=== PATIENT | male | born 1995 | race Asian ===

== ENCOUNTER 2017-02-23 08:57 | Inpatient (IN) | payer SELFPAY ==
--- NOTE | ~2017-02-23 | PN ---
Unit #: [id number] #: [id number] Patient: MIRANDACARLOS [id number] [facility] [address] [place] [address] [id number] I MR#: [id number] NAME: PERLITA MATOS ROOM: [facility]6 Age: 22 Sex: M Admission Date: 02/23/2017 : 1995 Attending Physician: Selena Heath M.D. Admitting Physician: Gerald Betancur PROGRESS NOTES DATE 02/25/2017 DISCUSSION Mr. Matos is a 22-year-old Uruguayan male who was seen today and chart was reviewed and case was discussed with the staff. He has been anxious, withdrawn, disorganized and rather seclusive to himself. Meanwhile, he has been showing some improvement in his mood as of yesterday and has not shown any agitation or violent outburst. Staff report that he did take his medications and so far no tolerability issues are noted. His family was also able to have irregular visitation. MENTAL STATUS EXAMINATION Young [place]ruguayan male who was casually dressed with fair personal hygiene and appears to be in no acute distress or discomfort. He was awake and alert on interaction with intact orientation. His mood was anxious with congruent affect. His speech is slow and restricted in content. He denies any suicidal or homicidal ideations and also denies any auditory or visual hallucinations. His insight and judgement remains significantly impaired. TREATMENT PLAN 1. Will continue on his current medications and treatment protocol. Will monitor his response to the medications and make further adjustments as needed. 2. Will continue to follow up. Dictated by... Gerald Betancur/britney TD: 02/25/2017 21:07 JOB #: [id number] Unit #: [id number] #: [id number] Patient: PERLITA MATOS PROGRESS NOTES Page 1 of 1 X Selena Heath MD PROGRESS NOTE
--- NOTE | ~2017-02-23 | PN ---
Unit #: [id number] #: [id number] Patient: PERLITA MATOS [id number] [facility] [address] [place] [address] [id number] MR#: [id number] NAME: PERLITA MATOS ROOM: [facility] Age: 22 Sex: M Admission Date: 02/23/2017 : 1995 Attending Physician: Selena Heath M.D. Admitting Physician: Gerald Betancur PROGRESS NOTES DATE 02/27/2017 DISCUSSION Mr. Matos is a 22-year-old Turkmen male who was seen today and chart was reviewed and case was discussed with the staff. He has been anxious, withdrawn though has not shown any agitation, irritability and appears to be doing better and has been calmer and cooperative with treatment recommendations and has been taking medications and tolerating them fairly well with no reported side effects. MENTAL STATUS EXAMINATION Young Turkmen male who was casually dressed with fair personal hygiene and appears to be in no acute distress or discomfort. He was awake and alert on interaction with intact orientation. His mood was anxious with congruent affect. His speech is slow and goal-directed. He denies any suicidal or homicidal ideations. His insight and judgement remains slightly impaired. TREATMENT PLAN 1. Will continue his current treatment protocol. Will monitor his response and make further adjustments as needed. 2. Will continue to follow up. Dictated by... Selena Heath M.D. IAA/britney TD: 02/27/2017 19:47 JOB #: [id number] Unit #: [id number] #: [id number] Patient: PERLITA MATOS PROGRESS NOTES Page 1 of 1 X Selena Heath MD PROGRESS NOTE
--- NOTE | ~2017-02-23 | DS ---
Unit #: [id number] #: [id number] Patient: MIRANDA [id number] [facility] [address] [place] [address] [id number] I MR#: [id number] NAME: MIRANDA ROOM: [facility]6 Age: 22 Sex: M Admission Date: 02/23/2017 : 1995 Discharge Date: 03/01/2017 Attending Physician: Selena Heath M.D. DISCHARGE SUMMARY IDENTIFYING DATA Mr. Matos is a 22-year-old Zimbabwean male who is a resident of [place], [place] and was transferred to us from [facility] at [facility]. DISCHARGE DIAGNOSES Psychiatric: Chronic paranoid schizophrenia. Medical: None. Stressors: Moderate psychosocial stressors. HISTORY OF PRESENT ILLNESS Please see initial psychiatric evaluation for details. PAST PSYCHIATRIC HISTORY Please see initial psychiatric evaluation for details. PAST MEDICAL HISTORY Please see initial psychiatric evaluation for details. HOSPITAL COURSE The [facility] and was oriented to the hospital environment and routine p.r.n. medications were initiated, and he was started on Haldol and Cogentin for psychosis and was closely monitored. He was initially seen to be very withdrawn, seclusive, and agitated and aggressive and hostile, and heading and attacking staff members, out of his paranoia and delusional behavior, requiring p.r.n. medications; however, he was compliant with the Haldol and Cogentin, and was able to show a fairly decent therapeutic response and was then seen to be calm and seclusive to himself and cooperative with treatment and no agitation, aggression, or psychosis was noticed and he was not seen to be danger to self or anyone else and as such, it was decided that he will be discharged home and will continue treatment on an outpatient basis. DISCHARGE MEDICATIONS Haldol 5 mg b.i.d. for psychosis and Cogentin 1 mg b.i.d. for EPS. DISCHARGE CONDITION Stable. PROGNOSIS Fair. Unit #: [id number] #: [id number] Patient: MIRANDA Dictated by... Gerald Betancur/soren TD: 03/01/2017 10:50 JOB #: [id number] DISCHARGE SUMMARY Page 1 of 1 X Selena Heath MD DISCHARGE SUMMARY
--- NOTE | ~2017-02-23 | PA ---
Unit #: [id number] #: [id number] Patient: MIRANDA [id number] [facility] [address] [place] [address] [id number] MR#: [id number] NAME: PERLITA JEAN ROOM: [facility] Age: 22 Sex: M Admission Date: 02/23/2017 : 1995 Date of Assessment: Attending Physician: Selena Heath M.D. Admitting Physician: Selena Heath M.D. PSYCHIATRIC ASSESSMENT IDENTIFYING DATA Mr. Esquivel is a 22-year-old Frisian Macedonian male, who is a resident of [place], [place] and was transferred to us from Emergency Psychiatric Services at [facility]. CHIEF COMPLAINT "I don't know." HISTORY OF PRESENT ILLNESS Mr. Esquivel is a 22-year-old Macedonian male, who was brought to the hospital emergency room by family due to the patient's bizarre behavior and according to the reports, family brought him in due to increasing auditory hallucinations, paranoia, and increasing being withdrawn for the last 2 years and family reports the patient has been sleeping approximately 2 hours at night and has poor appetite and reports being paranoid about food appearance make as he believes that food is poisoned. While in the ER, the patient was observed to be very paranoid and attempted to leave the interview room and once the patient outside the interview room, he would run and jump over nursing station in the waiting area and reported and reviewed that he is afraid of male, who follows him and watches him and told the interviewer that this person stares at him and his eye are "like snakes," and the patient also told the interviewer in the interview that The patient had a knife while at home and before being brought to the emergency room by family. He was also noticed to have knives on him outside of the house and approaching neighbors with it and has been extremely paranoid and delusion, believing that others are after him, watching and trying to hurt him and as such, he has been carrying knife in mean to self defend. He was seen to be a significant danger to self and as such, recommendation for inpatient level of care for safety and stabilization was made and the patient was transferred to us. SUBSTANCE ABUSE HISTORY The patient denies any history of alcohol or drug abuse. PAST PSYCHIATRIC HISTORY The patient has not had any prior inpatient or outpatient psychiatric treatment. Review of the medical records indicated currently is not active in treatment program, is not seeing a psychiatrist, not taking any psychotropic medications. PAST MEDICAL HISTORY No acute or chronic medical illnesses. Unit #: [id number] #: [id number] Patient: MIRANDA, ALLERGIES No known medication allergies. CURRENT MEDICATIONS None. PERSONAL AND SOCIAL HISTORY A 22-year-old Macedonian male, who reports that he lives at home with his family and has fairly decent social support system. MENTAL STATUS EXAMINATION Young Macedonian male, who was casually dressed with fair personal hygiene, appears to be in no acute distress or discomfort. He was awake and alert on interaction with intact orientation to time, place, and person. His mood was anxious with a congruent affect. His speech was slow and restricted in content. His thought processes were disorganized with some looseness of associations and paranoid ideations and delusional behavior. His insight and judgment remain significantly impaired. DIAGNOSTIC IMPRESSION Psychiatric: Chronic paranoid schizophrenia. Medical: None. Stressors: Moderate psychosocial stressors. TREATMENT PLAN 1. The patient has presented with symptoms suggestive of chronic paranoid schizophrenia with significant paranoia and delusional behavior, anhedonia, amotivation, alogia and at the same time does not appear to have received any ongoing treatment, though symptoms has been present according to family for the last couple of years and has been decompensating and has been becoming a danger to self and others and will recommend inpatient hospitalization for safety and stabilization. We will start him back on his home medications. We will adjust the medications and monitor response. 2. Supportive therapy was provided to the patient. ESTIMATED LENGTH OF STAY 5 to 7 days. ABILITY TO HELP SELF Limited. WILLINGNESS TO HELP SELF The patient appears to be willing to help self. STRENGTHS 1. Communicative. 2. Cooperative. PROBLEMS 1. Chronic dysphoric symptoms. 2. Poor social support system. DISCHARGE CRITERIA This will be contingent upon the patient's ability to show resolution of his depression and psychosis and his ability to stay safe to himself, particularly after discharge from the hospital. Unit #: [id number] #: [id number] Patient: MIRANDA, Dictated by... Selena Heath M.D. MARIE/soren E[place]OR[place]: 02/24/2017 06:21 TD: 02/24/2017 06:58 JOB #: [id number] PSYCHIATRIC ASSESSMENT Page 1 of 1 X Selena Heath MD PSYCHIATRIC ASSESSMENT
--- NOTE | ~2017-02-23 | PN ---
Unit #: [id number] #: [id number] Patient: PERLITA MATOS [id number] [facility] [address] [place] [address] [id number] MR#: [id number] NAME: PERLITA MATOS ROOM: [facility] Age: 22 Sex: M Admission Date: 02/23/2017 : 1995 Attending Physician: Selena Heath M.D. Admitting Physician: Gerald Betancur PROGRESS NOTES DATE 02/26/2017 DISCUSSION Mr. Matos is a 22-year-old Bhutanese male who was seen today and chart was reviewed and case was discussed with the staff. He has been anxious, withdrawn and has not shown any agitation, irritability and has been cooperative with treatment recommendations as he has been taking medications and tolerating them fairly well with no reported side effects. MENTAL STATUS EXAMINATION Young Bhutanese male who was casually dressed with fair personal hygiene and appears to be in no acute distress or discomfort. He was awake and alert on interaction with intact orientation. His mood was anxious with congruent affect. He denies any suicidal or homicidal ideations. His insight and judgement remain slightly impaired. TREATMENT PLAN 1. Will continue his current medications and treatment protocol. Will monitor his response to the medications and make further adjustments as needed. 2. Will continue to follow up. Dictated by... Gerald Betancur/britney TD: 02/26/2017 16:29 JOB #: [id number] Unit #: [id number] #: [id number] Patient: PERLITA MATOS PROGRESS NOTES Page 1 of 1 X Selena Heath MD X PROGRESS NOTE
--- NOTE | ~2017-02-23 | HP ---
Unit #: [id number] #: [id number] Patient: PERLITA JEAN [id number] [place] [address] [id number] I MR#: [id number] NAME: PERLITA JEAN ROOM: [facility]6 Age: 22 Sex: M Admission Date: 02/23/2017 : 1995 Attending Physician: Selena Heath M.D. Admitting Physician: Selena Heath M.D. HISTORY AND PHYSICAL HISTORY OF PRESENT ILLNESS Perlita is a 22 year old male immigrant from [facility] admitted to [address] [place] [address] after reporting auditory hallucinations and paranoia. Family says he has been acting bizarre. PAST MEDICAL HISTORY Nothing significant. PAST SURGICAL HISTORY Nothing reported. ALLERGIES No known drug allergies. SOCIAL HISTORY He denies cigarettes, alcohol and admits to marijuana on occasion. FAMILY HISTORY Medically noncontributory. REVIEW OF SYSTEMS He does not answer all questions appropriately. There are no reports of nausea, vomiting or diarrhea. He has had no cough or increased temperature. CURRENT MEDICATIONS 1. Thorazine 50 mg q 6 hours p.r.n. 2. Milk of Magnesia p.r.n. 3. Maalox p.r.n. 4. Tylenol p.r.n. PHYSICAL EXAMINATION GENERAL: Alert, well-nourished, in no apparent distress. VITAL SIGNS: Blood pressure 122/76, heart rate 100, respirations 16, temperature 98.6. WEIGHT: 130 pounds. HEIGHT: 5'0". SKIN: Warm and dry without rash or lesion. HEENT: Normocephalic. TMs not viewed. Oral and nasal passages clear. Conjunctivae clear. Pupils equal, round and reactive to light and accommodation. Extraocular movements intact. NECK: Supple without lymphadenopathy or thyromegaly. Unit #: [id number] #: [id number] Patient: PERLITA JEAN HEART: Regular rate and rhythm without murmur. LUNGS: Clear. ABDOMEN: Soft, nontender. : Not done. EXTREMITIES: No evidence of cyanosis, clubbing or edema. Moves all extremities without focal deficit. NEUROLOGICAL: Grossly within normal limits. Cranial Nerves: II: Visual haney are intact. III, IV AND : Extraocular movements are intact. Pupils are equal, round and reactive to light. V: Facial sensation is grossly normal. VII: Facial movements and expression are normal. VIII: Auditory acuity grossly intact. IX, X: Uvula is midline. Phonation is normal. XI: Patient shrugs shoulders and turns head normally. XII: Tongue protrudes in the midline. Sensory and Motor Function: Sensory and motor sensation is grossly normal. Motor: moves all extremities well. Coordination: Gait is normal. Deep Tendon Reflexes: Intact. IMPRESSION Psychiatric admission RECOMMENDATIONS PSYCHIATRIC: Per psychiatrist. MEDICAL: I see no contraindications to participating in facility's activities. MEDICAL PROGNOSIS Good. MEDICAL CONDITION Stable. Dictated by... Ramonita Pratt P.A.-C. for Gerald Urias/primitivo TD: 02/24/2017 00:15 JOB #: [id number] HISTORY AND PHYSICAL Page 1 of 1 X Ramonita Pratt X HISTORY AND PHYSICAL
--- NOTE | ~2017-02-23 | PN ---
Unit #: [id number] #: [id number] Patient: MIRANDA [id number] [facility] [address] [place] [address] [id number] MR#: [id number] NAME: PERLITA MATOS ROOM: [facility]6 Age: 22 Sex: M Admission Date: 02/23/2017 : 1995 Attending Physician: Selena Heath M.D. Admitting Physician: Gerald Betancur PROGRESS NOTES DATE 02/28/2017 DISCUSSION Mr. Matos is a 22-year-old, Gabonese male who was seen today and chart was reviewed and case was discussed with the staff. He remains very seclusive to himself and does not come out and interact or socialize it might have something to do with language barrier however, he has been calm and has not shown any agitation, irritability, aggression, violent outburst and has not needing any management or p.r.n. medications to cut down on his violent outbursts and does not appear to medication and tolerating them fairly well with no reported side effects. MENTAL STATUS EXAM Young male who was casually dressed with fair personal hygiene, appears to be in no acute distress or discomfort. He was awake and alert with impaired attention and concentration. His mood was anxious with congruent affect. His speech was slow and restricted in content. His thought process was disorganized with some looseness of associations and flight of ideations. He denies any suicidal or homicidal ideation. Also, denies any auditory or visual hallucinations. His insight and judgement remains slightly impaired. TREATMENT PLAN 1. We will continue him on his current medications and treatment protocol . Dictated by... Gerald Betancur/primitivo TD: 03/02/2017 00:30 JOB #: [id number] Unit #: [id number] #: [id number] Patient: PERLITA MATOS PEAMARYJO PROGRESS NOTES Page 1 of 1 X Selena Heath MD NOTE
[2017-02-24 09:43] LABS: URINE APPEARANCE TURBID; URINE BILIRUBIN NEG (NEG); URINE BLOOD NEG (NEG); URINE COLOR YELLOW; URINE GLUCOSE 500 MG/DL (NEG); URINE KETONE TRACE (NEG); URINE LEUKOCYTE ESTERASE NEG (NEG); URINE NITRATE NEG (NEG); URINE PH 6.5 (5-8); URINE PROTEIN NEG (NEG); URINE SPECIFIC GRAVITY 1.025 (1.003-1.035)
[2017-02-24 10:31] LABS: AMPHETAMINE NEG (NEG); BARBITURATES NEG (NEG); BENZODIAZEPINES NEG (NEG); COCAINE NEG (NEG); MARIJUANA NEG (NEG); OPIATES NEG (NEG); TRICYCLIC ANTIDEPRESSANTS NEG (NEG); U METHADONE NEG (NEG)
== END 2017-03-01 10:24 | disposition home or self-care (01) | DRG 885 ==
LOC: P2L 08:57 → POF 14:04 → P2L 14:05 → P1S 17:29
PROVIDERS: Psychiatry & Neurology Psychiatry
DX: F20.0 Paranoid schizophrenia (principal)
CPT/HCPCS: 80307; 81003